=== PATIENT | female | born 1950 | race Caucasian/White ===

== ENCOUNTER 2019-03-19 10:32 | Emergency (ER) | payer MEDICARE, OTHER ==
[~2019-03-19] VITALS: Ht 162.6 cm; Wt 68.0 kg
[2019-03-19] MEDS ORDERED: ALBU90OI61 INH (10:58)
[2019-03-19] MEDS ORDERED: MONT5TCH PO (10:58)
[2019-03-19] MEDS ORDERED: Prednisone20 MG PO (12:48)
== END 2019-03-19 13:13 | disposition home or self-care (01) ==
LOC: ER 10:32
DX: J45.901 Unspecified asthma with (acute) exacerbation (principal)
CPT/HCPCS: 71046; 94640; 99285-25; J7512

== ENCOUNTER 2020-04-15 12:11 | Day surgery (SDC) | payer MEDICARE, OTHER ==
[~2020-04-15] VITALS: Ht 162.6 cm; Wt 66.1 kg
[~2020-04-15 12:11] MED LIST: ALBU90OI61 INH; MONT5TCH PO; Prednisone20 MG PO
--- NOTE | 2020-04-15 13:40 | NUR ---
Ambulatory in Day Surgery History, Chart, Medications and Allergies reviewed before start of procedure.Patient confirms NPO status and agrees with scheduled surgery. Patient states colon prep results clear.Lungs clear T/O to Auscultation. Patient States Post-Procedure ride home has been arranged.
--- NOTE | 2020-04-15 14:09 | NUR ---
04/15/20 1408 Reji Ny PATIENT DETERMINED TO BE ASA APPROPRIATE FOR PROPOFOL SEDATION PRIOR TO START OF PROCEDURE BY . Patient to ENDO 13-LEAD EKG REVIEWED WITH PHYSICIAN PRIOR TO START OF PROCEDURE.History, Chart, Medications and Allergies reviewed before start of procedure.MONITOR INTACT WITH CONTINUOUS PULSE OXIMETRY AND INTERMITTENT BP. O2 VIA N/C INTACT THROUGHOUT SEDATION/PROCEDURE.
--- NOTE | 2020-04-15 15:05 | NUR ---
Patient up to Ambulate independently. Gait steady. Discharge instructions reviewed with patient. Patient verbalizes understanding. Copy given to patient to take home. Patient States Post-Procedure ride home has been arranged. Discharged via wheelchair to private car for ride home. IV DCD PT DENIES N/V OR PAIN AT THIS TIME
== END 2020-04-15 22:54 | disposition home or self-care (01) ==
LOC: ORSCMMR 12:11 → ORD 13:45 → ORSCMMR 22:54
PROVIDERS: Internal Medicine Gastroenterology
PROC: 0DBM8ZX Excision of Descending Colon, Via Natural or Artificial Opening Endoscopic, Diagnostic (ICD-10-PCS; principal; 2020-04-15 13:45)
DX: Z12.11 Encounter for screening for malignant neoplasm of colon (principal); K64.8 Other hemorrhoids; D12.4 Benign neoplasm of descending colon; J45.909 Unspecified asthma, uncomplicated; K21.9 Gastro-esophageal reflux disease without esophagitis; F17.210 Nicotine dependence, cigarettes, uncomplicated
CPT/HCPCS: J2704; J7120

== ENCOUNTER → 2023-04-25 | Outpatient (CLI) | payer MEDICARE, OTHER | END | disposition home or self-care (01) | LOC: LAB SHORT 11:17 → PLD 11:17 | DX: C44.319 Basal cell carcinoma of skin of other parts of face (principal) | CPT/HCPCS: 88305 ==